=== PATIENT | female | born 1990 | race Caucasian/White ===

== ENCOUNTER 2021-06-26 19:50 | Emergency (ER) | payer SELFPAY ==
[~2021-06-26] VITALS: Ht 162.6 cm; Wt 68.0 kg
[2021-06-26 20:10] VITALS: BP 149/90
--- NOTE | 2021-06-26 20:13 | NUR ---
TO LOBBY A/W BED AMBULATORY
--- NOTE | 2021-06-26 21:00 | NUR ---
PT AMBULATED TO BED
--- NOTE | 2021-06-26 21:00 | NUR ---
31 Y/O FEMALE C/O SORETHROAT, FOR 5 DAYS, DIFF OF SWALLOWING. PT STATES "FEELS LIKE SOMETHING IS STUCK IN MY THROAT" PT STATES 10/10 PAIN. LUNG SOUNDS CLEAR. MEDHX: ASTHMA NKA
[2021-06-26] MEDS ORDERED: DEXAMETHASONE 10 MG/ML VIAL PO ONE (21:10)
[2021-06-26] MEDS ORDERED: NAPR-54 PO (21:10)
[2021-06-26] MEDS ORDERED: AMOX500C25 PO (21:10)
[2021-06-26] MEDS ORDERED: ACET-8386 PO (21:10)
[2021-06-26 21:19] VITALS: BP 149/90
--- NOTE | 2021-06-26 21:19 | NUR ---
Patient discharged with v/s stable. Written and verbal after care instructions given and explained. Patient alert, oriented and verbalized understanding of instructions. Ambulatory with steady gait. All questions addressed prior to discharge. ID band removed. Patient advised to follow up with PMD. Rx of NORCO, AMOXICILLIN, AND NAPROSYN given. Patient educated on indication of medication including possible reaction and side effects. Opportunity to ask questions provided and answered.
== END 2021-06-26 21:19 | disposition home or self-care (01) ==
LOC: MED 19:50
DX: J02.9 Acute pharyngitis, unspecified (principal)
CPT/HCPCS: 99283; J1100

== ENCOUNTER 2022-01-19 06:50 | Emergency (ER) | payer SELFPAY ==
[~2022-01-19] VITALS: Ht 162.6 cm; Wt 65.8 kg
[~2022-01-19 06:50] MED LIST: ACET-8386 PO; AMOX500C25 PO; NAPR-54 PO
[2022-01-19 07:00] VITALS: BP 109/57
--- NOTE | 2022-01-19 07:00 | NUR ---
TO BED AMBULATORY
--- NOTE | 2022-01-19 07:06 | NUR ---
Patient BIB by family from home. C/O right lower back pain x 1 week. Patient reported, had right lower back pain for a week, denied injury or trauma. A/O,X4, right lower back pain, pain rate 8/10.
--- NOTE | 2022-01-19 07:11 | NUR ---
AT BEDSIDE TO EXAM PATIENT.
--- NOTE | 2022-01-19 07:18 | NUR ---
31/F BIB SELF WITH C/O RIGHT LOWER BACK PAIN RADIATING TO RLQ WITH NAUSEA X1 WEEK. DENIES RECENT INJURY OR TRAUMA, STATES HER 3 YEAR OLD DAUGHTER IS CURRENTLY IN A LEG CAST AND SHE HAS BEEN HAVING TO CARRY HER MORE THAN USUAL. PATIENT REPORTS SHE HAS BEEN TAKING TYLENOL WITH NO RELIEF, DENIES V/D, DYSURIA OR HEMATURIA.
[2022-01-19] MEDS ORDERED: KETOROLAC 15 MG/ML VIAL IVP ONE (07:20)
--- NOTE | 2022-01-19 07:25 | NUR ---
20G IV PLACED IN RIGHT AC, LABS COLLECTED BEDSIDE. LABS AND URINE SAMPLE WALKED TO LAB.
--- NOTE | 2022-01-19 07:30 | NUR ---
PT TAKEN TO CT VIA W/C
--- NOTE | 2022-01-19 07:38 | NUR ---
PT RETURNED FROM CT
[2022-01-19 07:57] LABS: BASOPHILS % (AUTO) 0.4 % (0.0-2.0); EOSINOPHILS # (AUTO) 0.2 K/uL (0-0.4); EOSINOPHILS % (AUTO) 1.6 % (0.0-4.0); HEMATOCRIT 41.8 % (36-48); HEMOGLOBIN 14.1 g/dL (12.0-16.0); LYMPHOCYTES # (AUTO) 2.2 K/uL (2.5-16.5); LYMPHOCYTES % (AUTO) 18.1 % (20.5-51.1); MEAN CORPUSCULAR HEMOGLOBIN 31 pg (27-31); MEAN CORPUSCULAR HGB CONC 34 g/dL (33-37); MEAN CORPUSCULAR VOLUME 91.4 fL (80-94); MONOCYTES # (AUTO) 0.8 K/uL (0.8-1.0); MONOCYTES % (AUTO) 6.6 % (1.7-9.3); NEUTROPHILS # (AUTO) 9.1 K/uL (1.8-7.7); NEUTROPHILS % (AUTO) 73.3 % (42.2-75.2); PLATELET COUNT (AUTO) 355 K/uL (140-450); RED BLOOD CELL COUNT(AUTO) 4.58 MIL/uL (4.20-5.40); RED CELL DISTRIBUTION WIDTH 13.9 % (11.6-13.7); WHITE BLOOD COUNT (AUTO) 12.4 K/uL (4.8-10.8)
[2022-01-19 08:18] LABS: ANION GAP 11.3 (8-16); CARBON DIOXIDE 30.1 mmol/L (21-32); CREATININE 0.7 mg/dL (0.6-1.3); POTASSIUM 3.4 mmol/L (3.5-5.1); TOTAL BILIRUBIN 0.2 mg/dL (0.0-1.0)
[2022-01-19 08:54] LABS: APPEARANCE,URINE SL CLOUDY (CLEAR); BILIRUBIN,URINE NEGATIVE (NEGATIVE); BLOOD, URINE TRACE-I (NEGATIVE); COLOR,URINE YELLOW (YELLOW); LEUKOCYTE ESTERASE ,URINE NEGATIVE (NEGATIVE); NITRITE, URINE NEGATIVE (NEGATIVE); UGLUCOSE NEGATIVE (NEGATIVE)
[2022-01-19 09:21] LABS: RBC,URINE 0-5 /HPF (0-5)
[2022-01-19 09:22] LABS: CALCIUM OXALATE CRYSTALS,UR None Seen /HPF (None Seen); COARSE GRANULAR CASTS,URINE None Seen /LPF (None Seen); FINE GRANULAR CASTS,URINE None Seen /LPF (None Seen); HYALINE CASTS, URINE None Seen /LPF (None Seen); OTHER CASTS, URINE None Seen /LPF (None Seen); OTHER CRYSTALS,URINE None Seen /HPF (None Seen); TRICHOMONAS,URINE None Seen /HPF (None Seen); TRIPLE PHOSPHATE CRYSTAL,UR None Seen /HPF (None Seen); URIC ACID CRYSTALS,URINE None Seen /HPF (None Seen); URINE AMORPHOUS URATE None Seen /HPF (None Seen); WAXY CASTS,URINE None Seen /LPF (None Seen); WBC,URINE 0-5 /HPF (0-5); YEAST,URINE None Seen /HPF (None Seen)
[2022-01-19 09:23] LABS: RED BLOOD CELL CASTS,URINE None Seen /LPF (None Seen)
[2022-01-19 09:45] VITALS: BP 125/81
--- NOTE | 2022-01-19 09:45 | NUR ---
Patient discharged with v/s stable. Written and verbal after care instructions ABOUT MUSCLE CRAMPS AND SPASMS given and explained. Patient verbalized understanding. Ambulatory with steady gait. All questions addressed prior to discharge. Advised to follow up with PMD.
--- NOTE | 2022-01-19 09:45 | NUR ---
IV removed, catheter intact and site benign. Applied folded 4x4 gauze and tape to stop bleeding.
== END 2022-01-19 09:45 | disposition home or self-care (01) ==
LOC: MED 06:50
DX: M62.830 Muscle spasm of back (principal); R11.0 Nausea; J45.909 Unspecified asthma, uncomplicated; F15.90 Other stimulant use, unspecified, uncomplicated; Z98.890 Other specified postprocedural states; Z79.899 Other long term (current) drug therapy
CPT/HCPCS: 36415; 74176; 80053; 81001; 81025; 85025; 96374; 99284; J1885

== ENCOUNTER 2022-01-29 20:54 | Emergency (ER) | payer MEDICAID ==
[~2022-01-29] VITALS: Ht 162.6 cm; Wt 64.9 kg
[2022-01-29 21:06] VITALS: BP 142/93
--- NOTE | 2022-01-29 21:08 | NUR ---
patient to the bathroom for urine collection
--- NOTE | 2022-01-29 22:17 | NUR ---
Elba tsemauricio in [facility] - 01/29/22 at 2217 by ADENIKE patient in chair b for splint
--- NOTE | 2022-01-29 22:42 | NUR ---
PATIENT LEFT WITHOUT BEING SEEN BY DR. CHANCE. NO FURTHER CARE PROVIDED FOR PATIENT.
== END 2022-01-29 22:42 | disposition left against medical advice (07) ==
LOC: MED 20:54
DX: R31.9 Hematuria, unspecified (principal); Z53.21 Procedure and treatment not carried out due to patient leaving prior to being seen by health care provider
CPT/HCPCS: 81002; 81025